=== PATIENT | male | born 1945 | race Caucasian/White ===

== ENCOUNTER 2016-12-18 05:44 | Day surgery (SDC) | payer MEDICARE, OTHER ==
--- NOTE | ~2016-12-18 | EGD ---
EGD REPORT [facility] [address] [id number] NAME: ASHOK VYAS : [birth year] STATUS : REG [facility]#: [id number] AGE: 71 ADM/REG DATE : 12/18/16 MR#: [id number] REPORT SERV DATE: 12/18/16 DICTATED BY: REMEDIOS GARCES DATE: 12/18/16 REPORT STATUS : Draft TRANSCRIBED BY: [facility] DATE: 12/18/16 Endoscopy Center Patient Name: Ashok Vyas Date of : 1945 Attending MD: REMEIDOS GARCES MD Procedure Date No Time: 12/18/2016 Procedure: Colonoscopy Indications: Screening for colorectal malignant neoplasm Referring MD: JAZMYN VASQUEZ Medicines: as per anesthesia Complications: No immediate complications. Procedure: Pre-Anesthesia Assessment: - ASA Grade Assessment: II - A patient with mild systemic disease. After I obtained informed consent, the scope was passed under direct vision. Throughout the procedure, the patient's blood pressure, pulse, and oxygen saturations were monitored continuously. The PCF [id number] was introduced through the anus and advanced to the cecum, identified by appendiceal orifice and ileocecal valve. The colonoscopy was performed without difficulty. The patient tolerated the procedure. The quality of the bowel preparation was adequate to identify polyps. Findings: The perianal and digital rectal examinations were normal. Many small and large-mouthed diverticula were found in the sigmoid colon. Internal hemorrhoids were found during endoscopy and were mild. Impression: - Diverticulosis in the sigmoid colon. - Internal hemorrhoids. Recommendation: - Continue present medications. Procedure Code(s): --- Professional --- 98027, Colonoscopy, flexible, proximal to splenic flexure; diagnostic, with or without collection of specimen(s) by brushing or washing, with or without colon decompression (separate procedure) Diagnosis Code(s): --- Professional --- K64.8, Other hemorrhoids K57.30, Diverticulosis of large intestine without perforation or abscess without bleeding Z12.11, Encounter for screening for malignant neoplasm EGD REPORT [place] [address] [id number] NAME: ASHOK VYAS : [birth year] [place]US : [place] [facility] [place] [id number] AGE: 71 ADM/REG DATE : 12/18/16 MR#: [id number] REPORT SERV DATE: 12/18/16 DICTATED BY: REMEDIOS GARCES. DATE: 12/18/16 REPORT STATUS : Draft TRANSCRIBED BY: [employer] DATE: 12/18/16 of colon CPT copyright 2013 [employer]. All rights reserved. The codes documented in this report are preliminary and upon double ending machine operator review may be revised to meet current compliance requirements. REMEDIOS GARCES MD 12/18/2016 7:39 AM This report has been signed electronically. Number of Addenda: 0 Note Initiated On: 12/18/2016 6:50 AM Scope Withdrawal Time 0 hours 8 minutes 21 seconds [id number] [id number]
[~2016-12-18 05:44] MED LIST: HYDROCHLOROT25 MG PO; LISINOPRIL40 MG PO; PRAVACHOL40 MG PO
== END 2016-12-18 23:59 | disposition home health service (06) ==
LOC: DMU 05:44
PROVIDERS: Internal Medicine Gastroenterology
PROC: 0DJD8ZZ Inspection of Lower Intestinal Tract, Via Natural or Artificial Opening Endoscopic (ICD-10-PCS; principal; 2016-12-18 07:00)
DX: Z12.11 Encounter for screening for malignant neoplasm of colon (principal); K57.30 Diverticulosis of large intestine without perforation or abscess without bleeding; K64.8 Other hemorrhoids; I10 Essential (primary) hypertension; E78.00 Pure hypercholesterolemia, unspecified; M19.90 Unspecified osteoarthritis, unspecified site; Z90.49 Acquired absence of other specified parts of digestive tract; Z88.6 Allergy status to analgesic agent; Z87.891 Personal history of nicotine dependence; Z79.899 Other long term (current) drug therapy; Z98.890 Other specified postprocedural states